=== PATIENT | female | born 1990 | race Caucasian/White ===

== ENCOUNTER → 2016-09-04 | Outpatient (CLI) | payer BC | LOC: BMCIMAGING 13:55 | PROVIDERS: ATTEND Internal Medicine Rheumatology | DX: M46.1 Sacroiliitis, not elsewhere classified (principal) ==

== ENCOUNTER → 2018-05-09 | Outpatient (CLI) | payer BC | LOC: FIMAGING 09:42 → EDSTATUS 09:48 | PROVIDERS: ATTEND Physician Assistant Medical | DX: M25.522 Pain in left elbow (principal) ==